=== PATIENT | female | born 2000 | race Caucasian/White ===

== ENCOUNTER 2024-12-23 12:18 | Outpatient (CLI) | payer OTHER | END 2024-12-23 13:11 | disposition home or self-care (01) | LOC: NST 12:18 | PROVIDERS: ATTEND Obstetrics & Gynecology | DX: Z34.83 Encounter for supervision of other normal pregnancy, third trimester (principal) ==

== ENCOUNTER 2025-01-12 09:48 | Outpatient (CLI) | payer OTHER | END 2025-01-12 10:50 | disposition home or self-care (01) | LOC: NST 09:48 | PROVIDERS: ATTEND Obstetrics & Gynecology Maternal & Fetal Medicine | DX: Z34.83 Encounter for supervision of other normal pregnancy, third trimester (principal) ==

== ENCOUNTER 2025-01-27 08:43 | Outpatient (CLI) | payer OTHER ==
[2025-01-27] MEDS ORDERED: PRENATAL + DHA1 EAC1 PO (12:35)
== END 2025-01-27 09:22 | disposition home or self-care (01) ==
LOC: NST 08:43
PROVIDERS: ATTEND Obstetrics & Gynecology Maternal & Fetal Medicine
DX: Z34.83 Encounter for supervision of other normal pregnancy, third trimester (principal)

== ENCOUNTER 2025-01-27 11:05 | Inpatient (IN) | payer OTHER ==
[~2025-01-27] VITALS: Ht 154.9 cm; Wt 75.7 kg
[2025-01-27] MEDS ORDERED: BETAMETHASONE ACETATE,SOD PHOS 30 MG/5 ML ML ONE (11:23)
[2025-01-27] MEDS ORDERED: MAGNESIUM SULFATE IN WATER 0.04 GM/ML IV.SOLN IV ONE (11:23)
[2025-01-27] MEDS ORDERED: MAGNESIUM SULFATE IN WATER 4 GM/100 ML PIGGYBACK IV ONE (11:23)
[2025-01-27 11:39] VITALS: BP 125/81; BP 137/86
[2025-01-27] MEDS ORDERED: RINGERS SOLUTION,LACTATED 1,000 ML IV SCH (12:00)
[2025-01-27] MEDS ORDERED: BETAMETHASONE ACETATE,SOD PHOS 30 MG/5 ML ML IM STA (12:11)
[2025-01-27] MEDS ORDERED: MAGNESIUM SULFATE IN WATER 100 ML IV ONE (12:15)
[2025-01-27] MEDS ORDERED: MAGNESIUM SULFATE IN WATER 500 ML IV SCH (12:15)
[2025-01-27] MEDS ORDERED: PRENATAL + DHA1 EAC1 PO (12:35)
[2025-01-27 12:44] LABS: URINE APPEARANCE Cloudy; URINE BILIRRUBIN Negative (NEGATIVE); URINE BLOOD Negative; URINE COLOR Yellow; URINE GLUCOSE Negative (NEGATIVE); URINE KETONE Trace (NEGATIVE); URINE LEUKOCYTE Moderate; URINE NITRATE Negative; URINE PROTEIN 30 (NEGATIVE); URINE UROBILINOGEN 0.2 E.U./dl
[2025-01-27 12:45] LABS: URINE BACTERIA 2451.6 uL (0.0-1933); URINE EPITHELIAL CELLS 71.0 uL (0.0-38.8); URINE RBC 3.5 uL (0.0-20.8); URINE WBC 106.7 uL (0.0-23.2)
[2025-01-27 13:18] LABS: TYPE CELLS SQUAMOUS; URINE CAST 0.14 uL (0.0-1.40)
[2025-01-27 13:35] LABS: ALT/SGPT 15.0 U/L (12-78); AST/SGOT 14.0 U/L (15-37); BILIRUBIN TOTAL 0.78 mg/dL (0.3-1.2); BUN CREA RATIO 13.0 (7.0-25.0); CREATININE SERUM 0.39 mg/dL (0.55-1.02); GFR 203.66; GLOBULINA 3.4 G/DL (2.4-3.5); GLUCOSE FASTING 68.0 mg/dL (65-100); OSMOLALITY SERUM 275.0 MOSM/KG (275-295)
[2025-01-27 13:53] LABS: BASO % 0.2 % (0.1-1.2); EOS # 0.09 (0.04-0.54); EOS % 1.1 % (0.7-7.0); LYMPH # 1.12 (1.18-3.74); LYMPH % 13.9 % (19.3-53.1); MEAN PLATELET VOLUME 10.50 fl (9.4-12.4); MONO # 0.63 (0.24-0.82); MONO % 7.8 % (4.7-12.5); NEUT # 6.14 (1.56-6.13); NEUT % 76.6 % (34.0-71.1); RED CELL DISTRIBUTION WIDTH 14.0 % (11.6-14.4)
[2025-01-27 15:26] VITALS: BP 137/69
[2025-01-27 20:29] VITALS: BP 135/78
[2025-01-27 23:16] VITALS: BP 128/78; O2SAT 97
[2025-01-28 03:20] VITALS: BP 112/73; O2SAT 100
[2025-01-28 06:19] VITALS: BP 133/81; O2SAT 98
[2025-01-28] MEDS ORDERED: NIFEDIPINE 60 MG TAB.SA.OSM PO SCH (09:00)
[2025-01-28 11:50] VITALS: BP 124/78; O2SAT 99
[2025-01-28] MEDS ORDERED: BETAMETHASONE ACETATE,SOD PHOS 30 MG/5 ML ML IM NR (12:11)
[2025-01-28] MEDS ORDERED: ACETAMINOPHEN 500 MG GEL..CAP PO PRN (13:30)
[2025-01-28 15:38] VITALS: BP 112/73
[2025-01-28 20:03] VITALS: BP 130/74
[2025-01-28 20:52] VITALS: BP 122/74
[2025-01-29 00:10] VITALS: BP 122/65
[2025-01-29 08:04] VITALS: BP 117/66
[2025-01-29 18:25] VITALS: BP 123/75
[2025-01-30 00:09] VITALS: BP 121/77; O2SAT 97
[2025-01-30 07:30] VITALS: BP 126/77
[2025-01-30 16:33] VITALS: BP 114/77
[2025-01-31] VITALS: BP 130/78; O2SAT 98
[2025-01-31 08:19] VITALS: BP 127/73
[2025-01-31 16:24] VITALS: BP 129/81
[2025-02-01 00:05] VITALS: BP 125/82
[2025-02-01 08:18] VITALS: BP 123/83
[2025-02-01 16:00] VITALS: BP 126/79
[2025-02-02] VITALS: BP 125/83
[2025-02-02 09:12] VITALS: BP 129/87
[2025-02-02 17:23] VITALS: BP 137/88
[2025-02-03] VITALS: BP 129/70
[2025-02-03 10:03] VITALS: BP 120/87
[2025-02-03 16:21] VITALS: BP 130/77
[2025-02-04] VITALS: BP 131/66
[2025-02-04 08:00] VITALS: BP 126/80
[2025-02-04 16:00] VITALS: BP 114/67
[2025-02-04] MEDS ORDERED: ACETAMINOPHEN 500 MG GEL..CAP PO PRN (16:15)
[2025-02-04 23:46] VITALS: BP 122/78
[2025-02-05 08:00] VITALS: BP 135/80
== END 2025-02-05 12:30 | disposition home or self-care (01) | DRG 833 ==
LOC: LDR 11:05 → OB/GYN 01-28 18:58
PROVIDERS: ADMIT Obstetrics & Gynecology; ATTEND Obstetrics & Gynecology
PROC: 4A1HXCZ Monitoring of Products of Conception, Cardiac Rate, External Approach (ICD-10-PCS; principal; 2025-01-27)
PROC: BY4GZZZ Ultrasonography of Third Trimester, Multiple Gestation (ICD-10-PCS; 2025-02-01)
PROC: BU4CZZZ Ultrasonography of Uterus and Ovaries (ICD-10-PCS; 2025-02-01)
DX: O30.043 Twin pregnancy, dichorionic/diamniotic, third trimester (principal); O32.1XX1 Maternal care for breech presentation, fetus 1; O33.8 Maternal care for disproportion of other origin; Z3A.33 33 weeks gestation of pregnancy

== ENCOUNTER 2025-02-16 10:42 | Outpatient (CLI) | payer OTHER ==
[~2025-02-16 10:42] MED LIST: PRENATAL + DHA1 EAC1 PO
== END 2025-02-16 11:06 | disposition home or self-care (01) ==
LOC: NST 10:42
PROVIDERS: ATTEND Obstetrics & Gynecology Maternal & Fetal Medicine
DX: Z34.83 Encounter for supervision of other normal pregnancy, third trimester (principal)

== ENCOUNTER 2025-02-18 10:02 | Inpatient (IN) | payer OTHER ==
[~2025-02-18] VITALS: Ht 152.4 cm; Wt 75.3 kg
[2025-02-18 10:14] VITALS: BP 143/85
[2025-02-18] MEDS ORDERED: CEFAZOLIN SODIUM 1,000 MG VIAL IV SCH (12:30)
[2025-02-18] MEDS ORDERED: CITRIC ACID/SODIUM CITRATE 30 ML BLIST.PACK PO NR (12:30)
[2025-02-18] MEDS ORDERED: RINGERS SOLUTION,LACTATED 1,000 ML IV SCH (12:30)
[2025-02-18] MEDS ORDERED: NIFEDIPINE20 MG PO (12:35)
[2025-02-18 13:17] LABS: BASO % 0.3 % (0.1-1.2); EOS # 0.10 (0.04-0.54); EOS % 1.3 % (0.7-7.0); LYMPH # 1.36 (1.18-3.74); LYMPH % 17.9 % (19.3-53.1); MEAN PLATELET VOLUME 10.80 fl (9.4-12.4); MONO # 0.51 (0.24-0.82); MONO % 6.7 % (4.7-12.5); NEUT # 5.59 (1.56-6.13); NEUT % 73.5 % (34.0-71.1); RED CELL DISTRIBUTION WIDTH 13.3 % (11.6-14.4)
[2025-02-18 13:53] LABS: INR < 0.93
[2025-02-18 13:58] LABS: ALT/SGPT 18.0 U/L (12-78); AST/SGOT 20.0 U/L (15-37); BILIRUBIN TOTAL 0.68 mg/dL (0.3-1.2); BUN CREA RATIO 14.0 (7.0-25.0); CREATININE SERUM 0.5 mg/dL (0.55-1.02); GFR 151.58; GLOBULINA 3.3 G/DL (2.4-3.5); GLUCOSE FASTING 69.0 mg/dL (65-100); OSMOLALITY SERUM 274.0 MOSM/KG (275-295)
[2025-02-18] MEDS ORDERED: OXYTOCIN 10 UNITS/ML VIAL ONE ×2 (14:13→22:20)
[2025-02-18] MEDS ORDERED: ERYTHROMYCIN BASE OPHT 1GM EACH TUBE OP ONE (14:13)
[2025-02-18 15:22] VITALS: BP 124/85
[2025-02-18] MEDS ORDERED: OXYTOCIN 1,000 ML IV ONE (19:45)
[2025-02-18] MEDS ORDERED: KETOROLAC TROMETHAMINE 30 MG VIAL IV SCH (20:00)
[2025-02-18] MEDS ORDERED: MORPHINE SULFATE 4 MG/ML CARTRIDGE IV SCH (21:00)
[2025-02-18] MEDS ORDERED: KETOROLAC TROMETHAMINE 30 MG VIAL ONE (22:20)
[2025-02-18] MEDS ORDERED: KETOROLAC TROMETHAMINE 30 MG VIAL IV ONE (22:25)
[2025-02-18 23:02] VITALS: BP 154/80
[2025-02-19] VITALS (8 sets, daily range): BP systolic 140–160; BP diastolic 79–100
[2025-02-19] MEDS ORDERED: LABETALOL HCL 100 MG/20 ML ML ONE (05:45)
[2025-02-19] MEDS ORDERED: LABETALOL HCL 100 MG/20 ML ML IV PUSH ONE (06:00)
[2025-02-19] MEDS ORDERED: ACETAMINOPHEN 500 MG GEL..CAP PO SCH (06:00)
[2025-02-19] MEDS ORDERED: MAGNESIUM SULFATE IN WATER 4 GM/100 ML PIGGYBACK IV ONE (06:45)
[2025-02-19] MEDS ORDERED: MAGNESIUM SULFATE IN WATER 500 ML IV SCH (07:00)
[2025-02-19] MEDS ORDERED: MAGNESIUM SULFATE IN WATER 100 ML IV SCH (07:00)
[2025-02-19 08:43] LABS: BASO % 0.2 % (0.1-1.2); EOS # 0.11 (0.04-0.54); EOS % 0.9 % (0.7-7.0); LYMPH # 1.79 (1.18-3.74); LYMPH % 14.6 % (19.3-53.1); MEAN PLATELET VOLUME 11.00 fl (9.4-12.4); MONO # 0.80 (0.24-0.82); MONO % 6.5 % (4.7-12.5); NEUT # 9.52 (1.56-6.13); NEUT % 77.5 % (34.0-71.1); RED CELL DISTRIBUTION WIDTH 13.4 % (11.6-14.4)
[2025-02-19] MEDS ORDERED: PNV,CALCIUM 72/IRON/FOLIC ACID 1 TAB TABLET PO SCH (09:00)
[2025-02-19] MEDS ORDERED: DOCUSATE SODIUM 100MG CAP PO SCH (09:00)
[2025-02-19] MEDS ORDERED: GABAPENTIN 300 MG CAPSULE PO SCH (09:00)
[2025-02-19] MEDS ORDERED: SIMETHICONE 125 MG CAPSULE PO SCH (09:00)
[2025-02-19] MEDS ORDERED: ACETAMINOPHEN 500 MG GEL..CAP PO ONE (18:21)
[2025-02-19 20:39] LABS: BASO % 0.2 % (0.1-1.2); EOS # 0.14 (0.04-0.54); EOS % 1.3 % (0.7-7.0); LYMPH # 1.46 (1.18-3.74); LYMPH % 13.5 % (19.3-53.1); MEAN PLATELET VOLUME 10.20 fl (9.4-12.4); MONO # 0.74 (0.24-0.82); MONO % 6.8 % (4.7-12.5); NEUT # 8.39 (1.56-6.13); NEUT % 77.6 % (34.0-71.1); RED CELL DISTRIBUTION WIDTH 13.5 % (11.6-14.4)
[2025-02-19] MEDS ORDERED: NIFEDIPINE 30 MG TAB.SA.OSM PO SCH (21:00)
[2025-02-19 21:09] LABS: ALT/SGPT 15.0 U/L (12-78); AST/SGOT 22.0 U/L (15-37); BILIRUBIN TOTAL 0.43 mg/dL (0.3-1.2); BUN CREA RATIO 12.0 (7.0-25.0); CREATININE SERUM 0.58 mg/dL (0.55-1.02); GFR 127.72; GLOBULINA 2.8 G/DL (2.4-3.5); GLUCOSE FASTING 102.0 mg/dL (65-100); OSMOLALITY SERUM 281.0 MOSM/KG (275-295)
[2025-02-20 01:00] VITALS: BP 133/84; O2SAT 99
[2025-02-20 08:51] VITALS: BP 146/86
[2025-02-20 16:40] VITALS: BP 148/88
[2025-02-21] VITALS: BP 130/81; O2SAT 99
[2025-02-21 09:12] VITALS: BP 133/85; O2SAT 98
== END 2025-02-21 18:20 | disposition home or self-care (01) | DRG 786 ==
LOC: NST 10:02 → LDR 10:51 → O/R 17:17 → OB/GYN 19:36
PROVIDERS: ADMIT Obstetrics & Gynecology Gynecology; ATTEND Obstetrics & Gynecology Gynecology
PROC: 4A1HXCZ Monitoring of Products of Conception, Cardiac Rate, External Approach (ICD-10-PCS; 2025-02-18)
PROC: 10D00Z1 Extraction of Products of Conception, Low, Open Approach (ICD-10-PCS; principal; 2025-02-18 16:00)
DX: O30.043 Twin pregnancy, dichorionic/diamniotic, third trimester (principal); O60.14X2 Preterm labor third trimester with preterm delivery third trimester, fetus 2; O36.5931 Maternal care for other known or suspected poor fetal growth, third trimester, fetus 1; O32.1XX1 Maternal care for breech presentation, fetus 1; O14.14 Severe pre-eclampsia complicating childbirth; O13.4 Gestational [pregnancy-induced] hypertension without significant proteinuria, complicating childbirth; Z3A.36 36 weeks gestation of pregnancy; Z37.2 Twins, both liveborn